=== PATIENT | male | born 1980 ===

== ENCOUNTER 2016-10-18 08:30 | Emergency (ER) | payer BC ==
[2016-10-18 08:30] VITALS: BMI 31.8
--- NOTE | 2016-10-18 09:15 | ED PDOC ---
Arrival/HPI - General Chief Complaint: Headache Time Seen by Provider: 10/18/16 09:08 Historian: Patient - History of Present Illness Narrative History of Present Illness (Text): 10/18/16 08:52 A 35 year old male, whose past medical history includes TIA, DVT and Sciatica, presents to the emergency department with multiple complaints. The patient reports since this morning the has had some intermittent odd, numbness, sensation to the left side of the face. He denies any vision changes. Patient notes yesterday evening he has a pinching sensation to the right lower extremity and due to his history of DVT he became considered. During examination patient noticed a sharp pinpoint pleuritic pain the the back. He denies any fever, nausea, vomiting, prolonged immobilization, or other complaints at this time. PMD: [facility] Time/Duration: Other Symptom Onset: Sudden Symptom Course: Intermittent Quality: Other Activities at Onset: Rest Context: Home Past Medical History - Provider Review Nursing Documentation Reviewed: Yes - Past History Past History: No Previous - Infectious Disease Hx of Infectious Diseases: None - Tetanus Immunization Tetanus Immunization: Up to Date - Cardiac Hx Cardiac Disorders: No Hx Hypertension: No - Pulmonary Hx Asthma: Yes - Neurological Hx Transient Ischemic Attacks (TIA): Yes (Poss TIA two years ago) - HEENT Hx HEENT Disorder: No - Renal Hx Renal Disorder: No - Endocrine/Metabolic Hx Endocrine Disorders: No - Hematological/Oncological Hx Cancer: No Other/Comment: DVT Hx Right leg - Integumentary Hx Dermatological Disorder: No - Musculoskeletal/Rheumatological Hx Musculoskeletal Disorders: No Hx Herniated Disk: Yes Other/Comment: Sciatica - Gastrointestinal Hx Gastrointestinal Disorders: No - Genitourinary/Gynecological Hx Sexually Transmitted Diseases: No - Psychiatric Hx Psychophysiologic Disorder: No Hx Anxiety: No Hx Bipolar Disorder: No Hx Depression: No Hx Emotional Abuse: No Hx Hallucinations: No Hx Panic Disorder: No Hx Post Traumatic Stress Disorder: No Hx Psychosis: No Hx Physical Abuse: No Hx Schizophrenia: No Hx Sexual Abuse: No Hx Substance Use: No - Surgical History Hx Appendectomy: Yes Hx Orthopedic Surgery: Yes (R ANKLE) Hx Tonsillectomy: Yes - Anesthesia Hx Anesthesia: Yes Hx Anesthesia Reactions: No Hx Malignant Hyperthermia: No - Suicidal Assessment Feels Threatened In Home Enviroment: No Family/Social History - Physician Review Nursing Documentation Reviewed: Yes Family/Social History: Unknown Family HX Smoking Status: Never Smoked Hx Alcohol Use: No Hx Substance Use: No Hx Substance Use Treatment: No Allergies/Home Meds Allergies/Adverse Reactions: Allergies No Known Allergies Allergy (Verified 10/18/16 08:42) Review of Systems - Physician Review All systems were reviewed & negative as marked: Yes - Review of Systems Constitutional: absent: Fevers Cardiovascular: absent: Chest Pain Gastrointestinal: absent: Nausea, Vomiting Musculoskeletal: Back Pain, Other (pinch to the right lower extremity) Neurological: Other (numbness to the left side of the face) Physical Exam - Physical Exam Narrative Physical Exam (Text): Constitutional: No acute distress. Head: Normocephalic. Atraumatic. Eyes: PERRL. ENT: Moist mucous membranes. Neck: Supple. Cardiovascular: Regular rate. Chest: No tenderness. Respiratory: Clear to auscultation bilaterally. GI: Soft. Nontender. Nondistended. Back: No CVA tenderness. Musculoskeletal: No tenderness or swelling of extremities. Skin: No rash. Neurological: GCS=15, CN II-XII Intact except mild left sided facial weakness involving the forehead, Speech Normal, 5/5 motor strength, Normal Sensory Function, Normal finger to nose, Normal heel to stacy, Gait Normal, Memory Normal , Vital Signs Reviewed: Yes Vital Signs Temp Pulse Resp BP Pulse Ox 10/18/16 08:42 97.3 F L 78 18 136/87 97 10/18/16 08:30 82 18 136/87 98 Temperature: Afebrile Blood Pressure: Normal Pulse: Regular Respiratory Rate: Normal Appearance: Positive for: Well-Appearing, Non-Toxic, Comfortable Pain Distress: None Mental Status: Positive for: Alert and Oriented X 3 Medical Decision Making ED Course and Treatment: 10/18/16 08:52 Impression: A 35 year old male with numbness to the left side of the face, sharp pleuritic back pain and a pinching sensation to the right lower extremity. Differential Diagnosis include but are not limited to: ly's palsy vs. PE vs. DVT Plan: -- Right lower extremity duplex ultrasound -- Labs -- Valtrex and Prednisone -- Reassess and disposition Prior Visits: Notes and results from previous visits were reviewed. The patient last presented to the emergency department on 05/02/16 for evaluation of feeling anxious and depressed. Progress Notes: - Lab Interpretations Lab Results: 10/18/16 09:08 10/18/16 09:30 Lab Results 10/18/16 09:30: Sodium 138, Potassium 4.4, Chloride 104, Carbon Dioxide 27, Anion Gap 11, BUN 19, Creatinine 1.0, Est GFR ( Amer) > 60, Est GFR (Non- Af Amer) > 60, Random Glucose 90, Calcium 8.9, Total Bilirubin 0.6, AST 27, ALT 37, Alkaline Phosphatase 66, Total Protein 7.3, Albumin 4.2, Globulin 3.1, Albumin/Globulin Ratio 1.4 10/18/16 09:30: D-Dimer, Quantitative 0.26 10/18/16 09:08: WBC 5.7 D, RBC 5.00, Hgb 14.9, Hct 42.0, MCV 84.0, MCH 29.8, MCHC 35.5, RDW 12.5, Plt Count 141, MPV 11.5 H, Gran % 66.8, Lymph % (Auto) 24.3 , [place] % (Auto) 6.3 H, Eos % (Auto) 2.4, Baso % (Auto) 0.2, Gran # 3.83, Lymph # 1.4, [place] # 0.4, Eos # 0.1, Baso # 0.01 I have reviewed the lab results: Yes - RAD Interpretation Radiology Orders: 10/18/16 09:22 DUPLEX LOWER EXTRM VEIN RIGHT [US] Stat - Medication Orders Current Medication Orders: Discontinued Medications Prednisone (Prednisone Tab) 60 mg PO STAT ONE Stop: 10/18/16 09:11 Last Admin: 10/18/16 09:24 Dose: 60 mg Valacyclovir HCl (Valtrex) 1 gm PO STAT STA PRN Reason: Protocol Stop: 10/18/16 09:09 Last Admin: 10/18/16 09:24 Dose: 1 gm - Scribe Statement The provider has reviewed the documentation as recorded by the Crista Lee Provider Crystalibe Attestation: All medical record entries made by the Crystalibyosvany were at my direction and personally dictated by me. I have reviewed the chart and agree that the record accurately reflects my personal performance of the history, physical exam, medical decision making, and the department course for this patient. I have also personally directed, reviewed, and agree with the discharge instructions and disposition. Disposition/Present on Arrival - Present on Arrival Any Indicators Present on Arrival: Yes History of DVT/PE: Yes History of Uncontrolled Diabetes: No Urinary Catheter: No History of Decub. Ulcer: No History Surgical Site Infection Following: None - Disposition Have Diagnosis and Disposition been Completed?: Yes Diagnosis: Ly palsy Disposition: HOME/ ROUTINE Disposition Time: 10:00 Patient Plan: Discharge Condition: STABLE Discharge Instructions (ExitCare): Ly Palsy (ED) Prescriptions: predniSONE [predniSONE Tab] 3 tab PO DAILY #18 tab Valacyclovir HCl [Valtrex] 1 gm PO TID #20 tablet Referrals: Héctor Taylor MD [Staff Provider] - Follow up with primary Forms: WORK NOTE
[2016-10-18 09:31] LABS: BASO # 0.01 K/mm3 (0.0-2.0); BASO % 0.2 % (0.0-3.0); EOS # 0.1 (0.0-0.7); EOS % 2.4 % (1.5-5.0); GRAN # 3.83 (1.4-6.5); GRAN % 66.8 % (50.0-68.0); HEMOGLOBIN 14.9 gm/dL (14.0-18.0); LYMPH # 1.4 (1.2-3.4); LYMPH % 24.3 % (22.0-35.0); MEAN CORPUSCULAR HEMOGLOBIN 29.8 pg (25.0-35.0); MEAN CORPUSCULAR HGB CONC 35.5 g/dl (31.0-37.0); MEAN PLATELET VOLUME 11.5 fl (7.0-11.0); MONO # 0.4 (0.1-0.6); MONO % 6.3 % (1.0-6.0); PLATELET COUNT 141 10^3/uL (120.0-450.0); RED CELL DISTRIBUTION WIDTH 12.5 % (11.5-14.5); WHITE BLOOD COUNT 5.7 10^3/ul (4.5-11.0)
[2016-10-18 09:47] LABS: ALB/GLOB RATIO 1.4 (1.1-1.8); ALBUMIN 4.2 g/dL (3.0-4.8); ALT/SGPT 37 U/L (7-56); AST/SGOT 27 U/L (15-59); BLOOD UREA NITROGEN 19 mg/dL (7-21); CALCIUM 8.9 mg/dL (8.4-10.5); GFR AFRICAN-AMERICAN > 60; GFR NON-AFRICAN AMERICAN > 60
[2016-10-18 10:30] VITALS: BP 110/62; PULSE 66; RESP 16; TEMP 98; O2SAT 98
--- NOTE | 2016-10-18 11:23 | US ---
PROCEDURE: Right lower extremity venous US HISTORY: Leg pain and swelling. Evaluate for DVT. PHYSICIAN(S): Leoncio Garcia M.D. TECHNIQUE: Duplex sonography and color-flow Doppler with graded compression were used to evaluate the deep venous system of the right lower extremity. FINDINGS: The visualized deep venous system of the right lower extremity is sonographically normal and compressible. Normal waveforms and augmentation are seen. There is no sonographic evidence for deep venous thrombosis in the visualized segments of the right lower extremity. IMPRESSION: 1. No sonographic evidence for deep venous thrombosis in the visualized segments of the right lower extremity.
--- NOTE | 2016-10-18 13:34 | CARD ---
APPROVED REPORT EKG Measurement Heart [id number] <Conclusion> Normal sinus rhythm Normal ECG
== END 2016-10-18 10:30 | disposition home or self-care (01) ==
LOC: ED 08:30
DX: G51.0 Bell's palsy (principal); Z86.73 Personal history of transient ischemic attack (TIA), and cerebral infarction without residual deficits; Z86.718 Personal history of other venous thrombosis and embolism

== ENCOUNTER 2016-12-19 08:53 | Emergency (ER) | payer BC ==
[2016-12-19 09:21] VITALS: RESP 18; TEMP 98; BMI 29.5
--- NOTE | 2016-12-19 09:41 | ED PDOC ---
Arrival/HPI - General Chief Complaint: Groin Pain Time Seen by Provider: 12/19/16 09:36 Historian: Patient - History of Present Illness Narrative History of Present Illness (Text): 12/19/16 09:38 35 y/o male, pmh including TIA?/bells palsy, nkda, c/o lt. groin and pelvic pain x 3 weeks. Pt. stated that he has been having lt. sided groin pain after he suddenly trying to catch and caught with holding his breath to carry his father in law (350 lbs.) to prevent the fall, thought it was strain or pulled muscle but the pain has never resolved, stated that occasionally feel there is a lump protruding out but not at this time. Pt. has no penile discharge, admits occasionally radiating to the left testicle region but not at this time, no night sweat, no dizziness, no change in vision, no rash, no other medical or psychological complaints. Past Medical History - Provider Review Nursing Documentation Reviewed: Yes - Past History Past History: No Previous - Infectious Disease Hx of Infectious Diseases: None - Tetanus Immunization Tetanus Immunization: Up to Date - Cardiac Hx Cardiac Disorders: No Hx Hypertension: No - Pulmonary Hx Asthma: Yes - Neurological Hx Neurological Disorder: Yes Hx Transient Ischemic Attacks (TIA): Yes (Poss TIA two years ago) - HEENT Hx HEENT Disorder: No - Renal Hx Renal Disorder: No - Endocrine/Metabolic Hx Endocrine Disorders: No - Hematological/Oncological Hx Cancer: No Other/Comment: DVT Hx Right leg - Integumentary Hx Dermatological Disorder: No - Musculoskeletal/Rheumatological Hx Musculoskeletal Disorders: Yes Hx Herniated Disk: Yes Other/Comment: Sciatica - Gastrointestinal Hx Gastrointestinal Disorders: No - Genitourinary/Gynecological Hx Sexually Transmitted Diseases: No - Psychiatric Hx Psychophysiologic Disorder: No Hx Anxiety: No Hx Bipolar Disorder: No Hx Depression: No Hx Emotional Abuse: No Hx Hallucinations: No Hx Panic Disorder: No Hx Post Traumatic Stress Disorder: No Hx Psychosis: No Hx Physical Abuse: No Hx Schizophrenia: No Hx Sexual Abuse: No Hx Substance Use: No - Surgical History Hx Appendectomy: Yes Hx Orthopedic Surgery: Yes (R ANKLE) Hx Tonsillectomy: Yes Other/Comment: I&D R leg - Anesthesia Hx Anesthesia: Yes Hx Anesthesia Reactions: No Hx Malignant Hyperthermia: No - Suicidal Assessment Feels Threatened In Home Enviroment: No Family/Social History - Physician Review Nursing Documentation Reviewed: Yes Family/Social History: Unknown Family HX Smoking Status: Never Smoked Hx Alcohol Use: No Hx Substance Use: No Hx Substance Use Treatment: No Allergies/Home Meds Allergies/Adverse Reactions: Allergies No Known Allergies Allergy (Verified 12/19/16 09:12) Review of Systems - Review of Systems Constitutional: absent: Fatigue, Fevers Eyes: absent: Vision Changes ENT: absent: Hearing Changes Respiratory: absent: SOB, Cough Cardiovascular: absent: Chest Pain Gastrointestinal: Other (lt. sided groin pain). absent: Diarrhea, Nausea, Vomiting Musculoskeletal: Myalgias. absent: Arthralgias, Back Pain Skin: absent: Rash, Pruritis Neurological: absent: Headache, Gait Changes Endocrine: absent: Diaphoresis Physical Exam Vital Signs Reviewed: Yes Vital Signs Temp Pulse Resp BP Pulse Ox 12/19/16 09:12 98.0 F 83 18 123/71 98 Temperature: Afebrile Blood Pressure: Normal Pulse: Regular Respiratory Rate: Normal Appearance: Positive for: Well-Appearing, Non-Toxic Pain Distress: Moderate Mental Status: Positive for: Alert and Oriented X 3 - Systems Exam Head: Present: Atraumatic, Normocephalic Pupils: Present: PERRL Extroacular Muscles: Present: EOMI Conjunctiva: Present: Normal Mouth: Present: Moist Mucous Membranes Neck: Present: Normal Range of Motion Respiratory/Chest: Present: Clear to Auscultation, Good Air Exchange. No: Respiratory Distress, Accessory Muscle Use Cardiovascular: Present: Regular Rate and Rhythm, Normal S1, S2. No: Murmurs Abdomen: Present: Normal Bowel Sounds, Other (there is no palpable protruding hernia). No: Tenderness, Distention, Peritoneal Signs, Rebound, Guarding, Hernias Genitourinary Male: Present: Normal External Genitalia. No: Lesions, Penile Discharge, Testicle Tenderness, Penile Swelling, Masses, Erythema, Hernias, Testicle Swelling Back: Present: Normal Inspection Upper Extremity: Present: Normal Inspection. No: Cyanosis, Edema Lower Extremity: Present: Normal Inspection. No: Edema Neurological: Present: GCS=15, Speech Normal, Motor Func Grossly Intact, Gait Normal, Memory Normal Skin: Present: Warm, Dry, Normal Color. No: Rashes Psychiatric: Present: Alert, Oriented x 3, Normal Insight, Normal Concentration Medical Decision Making ED Course and Treatment: 12/19/16 09:41 -labs/ua -CT abdomen and pelvis -Testicular sonogram -IVF/toradol -observe and reassess -labs are non-significant -ua show no UTI -CT abdomen and pelvis show no acute findings -Testicular sonogram show Mild left varicocele. Bilateral mild hydrocele. Otherwise unremarkable examination. -Pt. feels better with pain relief. -Discharge home with naproxen, scrotal support, avoid straining/exercise or gym , follow up with your own pmd/urologist and general surgeon within 2 days, return to the ER for any new or worsening signs or symptoms. - Lab Interpretations Lab Results: 12/19/16 09:50 12/19/16 09:50 Lab Results 12/19/16 10:25: Urine Color Yellow, Urine Appearance Clear, Urine pH 5.5, Ur Specific [place] >= 1.030, Urine Protein Negative, Urine Glucose (UA) Negative, Urine Ketones Negative, Urine Blood Negative, Urine Nitrate Negative, Urine Bilirubin Negative, Urine Urobilinogen 0.2, Ur Leukocyte Esterase Negative 12/19/16 09:50: WBC 5.6, RBC 4.78, Hgb 14.5, Hct 40.3 L, MCV 84.3, MCH 30.3, MCHC 36.0, RDW 12.6, Plt Count 150, MPV 11.6 H, Gran % 72.6 H, Lymph % (Auto) 19.3 L, [place] % (Auto) 6.5 H, Eos % (Auto) 1.4 L, Baso % (Auto) 0.2, Gran # 4.03 , Lymph # 1.1 L, [place] # 0.4, Eos # 0.1, Baso # 0.01 12/19/16 09:50: Sodium 143, Potassium 4.5, Chloride 106, Carbon Dioxide 27, Anion Gap 15, BUN 15, Creatinine 1.0, Est GFR ( Amer) > 60, Est GFR (Non- Af Amer) > 60, Random Glucose 90, Calcium 9.1, Total Bilirubin 0.6, AST 26, ALT 31, Alkaline Phosphatase 59, Total Protein 7.1, Albumin 4.3, Globulin 2.8, Albumin/Globulin Ratio 1.5 I have reviewed the lab results: Yes Interpretation: No clinic. lab abnormalty - RAD Interpretation Radiology Orders: 12/19/16 09:37 ABD & PELVIS IV CONTRAST ONLY [CT] Stat TESTES DUPLEX COMPLETE [US] Stat CT Abdomen/pelvis: unremarkable Testicular sonogram: Mild left varicocele. Bilateral mild hydrocele. Otherwise unremarkable examination. 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 Disposition/Present on Arrival - Present on Arrival Any Indicators Present on Arrival: No History of DVT/PE: Yes History of Uncontrolled Diabetes: No Urinary Catheter: No History of Decub. Ulcer: No History Surgical Site Infection Following: None - Disposition Have Diagnosis and Disposition been Completed?: Yes Diagnosis: Varicocele, Hydrocele, Groin pain Disposition: HOME/ ROUTINE Disposition Time: 11:52 Patient Plan: Discharge Patient Problems: Current Active Problems Problem Status Onset Groin pain Acute Hydrocele Acute Varicocele Acute Condition: IMPROVED Additional Instructions: -Discharge home with naproxen, scrotal support, avoid straining/exercise or gym , follow up with your own pmd/urologist and general surgeon within 2 days, return to the ER for any new or worsening signs or symptoms. Prescriptions: Naproxen 500 mg PO BID #22 tab Referrals: Gay Ashby MD [Primary Care Provider] - Follow up with primary Carlos A Waters MD [Staff Provider] - Follow up with primary Chris Guzman MD [Medical Doctor] - Follow up with primary Forms: [employer] (Lithuanian), WORK NOTE
[2016-12-19 10:06] LABS: BASO # 0.01 K/mm3 (0.0-2.0); BASO % 0.2 % (0.0-3.0); EOS # 0.1 (0.0-0.7); EOS % 1.4 % (1.5-5.0); GRAN # 4.03 (1.4-6.5); GRAN % 72.6 % (50.0-68.0); HEMATOCRIT 40.3 % (42.0-52.0); LYMPH # 1.1 (1.2-3.4); LYMPH % 19.3 % (22.0-35.0); MEAN CELL VOLUME 84.3 fl (80.0-105.0); MEAN CORPUSCULAR HEMOGLOBIN 30.3 pg (25.0-35.0); MEAN PLATELET VOLUME 11.6 fl (7.0-11.0); MONO # 0.4 (0.1-0.6); MONO % 6.5 % (1.0-6.0); RED CELL DISTRIBUTION WIDTH 12.6 % (11.5-14.5); WHITE BLOOD COUNT 5.6 10^3/ul (4.5-11.0)
[2016-12-19 10:14] LABS: ALB/GLOB RATIO 1.5 (1.1-1.8); ALKALINE PHOSPHATASE 59 U/L (38-126); ALT/SGPT 31 U/L (7-56); AST/SGOT 26 U/L (17-59); BILIRUBIN,TOTAL 0.6 mg/dL (0.2-1.3); BLOOD UREA NITROGEN 15 mg/dL (7-21); CALCIUM 9.1 mg/dL (8.4-10.5); CARBON DIOXIDE 27 mmol/L (21-33); CHLORIDE 106 mmol/L (98-107); GFR AFRICAN-AMERICAN > 60; GLUCOSE,RANDOM 90 mg/dL (70-110); POTASSIUM 4.5 mmol/L (3.6-5.0); SODIUM 143 mmol/L (132-148); TOTAL PROTEIN 7.1 g/dL (5.8-8.3)
[2016-12-19] MEDS ORDERED: Iohexol 350 MG/100 ML VIAL ONE (10:19)
[2016-12-19 10:47] LABS: PH,URINE 5.5 (4.7-8.0); URINE BILIRUBIN NEGATIVE (NEGATIVE); URINE BLOOD NEGATIVE (NEGATIVE); URINE GLUCOSE (UA) NEGATIVE (NEGATIVE); URINE KETONE NEGATIVE (NEGATIVE); URINE LEUKOCYTE ESTERASE NEGATIVE Leu/uL (NEGATIVE); URINE PROTEIN NEGATIVE mg/dL (<30 mg/dL); URINE UROBILINOGEN 0.2 E.U./dL (<1 E.U./dL)
--- NOTE | 2016-12-19 10:49 | CT ---
PROCEDURE: CT Abdomen and Pelvis with contrast HISTORY: lt. sided groin pain x 3 weeks COMPARISON: None. TECHNIQUE: Contrast dose: 100 cc of Omni 350 Radiation dose: Total exam DLP = 868 mGy-cm. This CT exam was performed using one or more of the following dose reduction techniques: Automated exposure control, adjustment of the mA and/or kV according to patient size, and/or use of iterative reconstruction technique. FINDINGS: LOWER THORAX: Unremarkable. LIVER: Unremarkable. No gross lesion or ductal dilatation. GALLBLADDER AND BILE DUCTS: Unremarkable. PANCREAS: Unremarkable. No gross lesion or ductal dilatation. SPLEEN: Unremarkable. ADRENALS: Unremarkable. No mass. KIDNEYS AND URETERS: Unremarkable. No hydronephrosis. No solid mass. VASCULATURE: Unremarkable. No aortic aneurysm. BOWEL: Unremarkable. No obstruction. No gross mural thickening. APPENDIX: Normal appendix. PERITONEUM: Unremarkable. No free fluid. No free air. LYMPH NODES: Unremarkable. No enlarged lymph nodes. BLADDER: Unremarkable. REPRODUCTIVE: Unremarkable. BONES: No acute fracture. OTHER FINDINGS: None. IMPRESSION: Unremarkable contrast enhanced CT of the abdomen and pelvis.
[2016-12-19 10:51] LABS: URINE APPEARANCE CLEAR (CLEAR); URINE COLOR YELLOW (YELLOW)
--- NOTE | 2016-12-19 11:25 | US ---
HISTORY: lt. sided groin pain x 3 weeks TECHNIQUE: Realtime sonography through the scrotum with color and doppler flow. COMPARISON: None Available. FINDINGS: RIGHT TESTICLE: Measures 4.5 x 2.7 x 2.9 cm. Homogeneous echotexture. No mass identified. Normal flow demonstrated. RIGHT EPIDIDYMIS: Normal size and morphology. LEFT TESTICLE: Measures 4.6 x 2.8 x 3.1 cm. Homogeneous echotexture. No mass. Normal flow demonstrated. LEFT EPIDIDYMIS: Normal size and morphology. HYDROCELE: Bilateral mild hydrocele. VARICOCELE: Mild left varicocele. OTHER FINDINGS: None. IMPRESSION: Mild left varicocele. Bilateral mild hydrocele. Otherwise unremarkable examination.
[2016-12-19 12:10] VITALS: BP 98/55; PULSE 67; O2SAT 100
== END 2016-12-19 12:13 | disposition home or self-care (01) ==
LOC: ED 08:53
DX: R10.30 Lower abdominal pain, unspecified (principal); N43.3 Hydrocele, unspecified; I86.1 Scrotal varices
CPT/HCPCS: 74177; 80053; 81003; 85025; 93975; 96374; 99283; J1885; Q9967

== ENCOUNTER 2017-04-26 10:27 | Observation (INO) | payer BC ==
[2017-04-26 10:56] VITALS: BMI 29.8
[2017-04-26] MEDS ORDERED: Sodium Chloride 0.9% 1,000 ML IV STA (12:11)
[2017-04-26 12:52] LABS: URINE BILIRUBIN NEGATIVE (NEGATIVE); URINE BLOOD NEGATIVE (NEGATIVE); URINE GLUCOSE (UA) NEGATIVE (NEGATIVE); URINE LEUKOCYTE ESTERASE NEGATIVE Leu/uL (NEGATIVE); URINE NITRATE NEGATIVE (NEGATIVE); URINE PROTEIN NEGATIVE mg/dL (<30 mg/dL); URINE UROBILINOGEN 0.2 E.U./dL (<1 E.U./dL)
[2017-04-26 12:53] LABS: URINE APPEARANCE CLEAR (CLEAR); URINE COLOR YELLOW (YELLOW)
[2017-04-26 13:12] LABS: BASO # 0.02 K/mm3 (0.0-2.0); BASO % 0.2 % (0.0-3.0); EOS # 0.1 (0.0-0.7); EOS % 1.4 % (1.5-5.0); GRAN # 6.11 (1.4-6.5); GRAN % 70.6 % (50.0-68.0); LYMPH % 22.6 % (22.0-35.0); MEAN CELL VOLUME 85.4 fl (80.0-105.0); MEAN CORPUSCULAR HEMOGLOBIN 30.4 pg (25.0-35.0); MEAN CORPUSCULAR HGB CONC 35.6 g/dl (31.0-37.0); MEAN PLATELET VOLUME 11.5 fl (7.0-11.0); MONO # 0.5 (0.1-0.6); MONO % 5.2 % (1.0-6.0); RBC 5.27 10^6/uL (3.5-6.1); RED CELL DISTRIBUTION WIDTH 12.5 % (11.5-14.5); WHITE BLOOD COUNT 8.7 10^3/ul (4.5-11.0)
[2017-04-26 13:23] LABS: ALB/GLOB RATIO 1.5 (1.1-1.8); ALBUMIN 4.6 g/dL (3.0-4.8); ALT/SGPT 49 U/L (7-56); AST/SGOT 31 U/L (17-59); BLOOD UREA NITROGEN 16 mg/dL (7-21); CALCIUM 9.8 mg/dL (8.4-10.5); GFR AFRICAN-AMERICAN > 60; GFR NON-AFRICAN AMERICAN > 60; LIPASE 54 U/L (23-300)
--- NOTE | 2017-04-26 14:38 | CT ---
PROCEDURE: CT Abdomen and Pelvis with contrast HISTORY: left sided abdominal pain and back pain COMPARISON: 12/19/2016. TECHNIQUE: CT scan of the abdomen and pelvis was performed after intravenous administration contrast. Oral contrast was not administered. Coronal and sagittal reformatted images were obtained with Contrast dose: Radiation dose: Total exam DLP = 925.38 mGy-cm. This CT exam was performed using one or more of the following dose reduction techniques: Automated exposure control, adjustment of the mA and/or kV according to patient size, and/or use of iterative reconstruction technique. FINDINGS: LOWER THORAX: The lung bases are clear. LIVER: The liver is normal in size and there is homogeneous enhancement. No intrahepatic biliary ductal dilatation. GALLBLADDER AND BILE DUCTS: There are no calcified gallstones. PANCREAS: Normal in size with homogeneous enhancement. No gross lesion or ductal dilatation. SPLEEN: Normal in size with homogeneous enhancement. ADRENALS: Normal in size. No discrete nodule. KIDNEYS AND URETERS: Both kidneys are normal in size and there is homogeneous enhancement. No hydronephrosis. No solid mass. VASCULATURE: No aortic aneurysm. BOWEL: There is mild dilatation of the proximal small bowel loops. The mid and distal small bowel loops are normal in caliber. There is scattered colonic diverticulosis. APPENDIX: Normal appendix. PERITONEUM: No free fluid. No free air. LYMPH NODES: No enlarged lymph nodes. BLADDER: Partially decompressed. REPRODUCTIVE: Unremarkable. BONES: No acute fracture. Within normal limits for the patient's age. OTHER FINDINGS: There are bilateral small fat containing inguinal hernias. . IMPRESSION: 1. Mild dilatation of proximal small bowel loops. Normal caliber mid and distal small bowel loops no definite evidence transition zone identified on this examination however evaluation of the bowel is limited in the absence of oral contrast. Findings could represent nonspecific enteritis versus developing small bowel obstruction. Clinical correlation and follow-up is advised. 2. Mild sigmoid diverticulosis without CT evidence for acute diverticulitis.
--- NOTE | 2017-04-26 15:46 | ED PDOC ---
Arrival/HPI - General Chief Complaint: Back Pain Time Seen by Provider: 04/26/17 12:11 Historian: Patient - History of Present Illness Narrative History of Present Illness (Text): 04/26/17 15:40 A 36 year old male whose past medical history includes left sided hernia repair 4 months ago and sciatica, presents to the emergency department complaining of 2 day duration left sided abdominal pain. The patient describes his symptoms as a gassy sensation and achy pain. He notes that he is also experiencing left sided back pain that radiates down his left leg. The patient reports that he had an episode of diarrhea yesterday and constipation today. He states that he took Motrin for his pain yesterday with no relief of his symptoms. The patient denies fevers, chills, headache, dizziness, chest pain, shortness of breath, dyspnea on exertion, cough, nausea, vomiting, urinary symptoms, or any other complaint. PMD: Dr. Ashby Time/Duration: Other (2 Days) Symptom Onset: Sudden Symptom Course: Unchanged Activities at Onset: Rest, Light Context: Home Past Medical History - Provider Review Nursing Documentation Reviewed: Yes - Past History Past History: No Previous - Infectious Disease Hx of Infectious Diseases: None - Tetanus Immunization Tetanus Immunization: Up to Date - Cardiac Hx Hypertension: No - Pulmonary Hx Asthma: Yes - Neurological Hx Seizures: No Hx Transient Ischemic Attacks (TIA): Yes (Poss TIA two years ago) - HEENT Hx HEENT Disorder: No - Renal Hx Renal Disorder: No - Endocrine/Metabolic Hx Endocrine Disorders: No - Hematological/Oncological Hx Blood Disorders: No Hx Cancer: No 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 dr otto aware dr otto and dr acuña aware pt has not taken asa x 1 month - Integumentary Hx Dermatological Disorder: No - Musculoskeletal/Rheumatological Hx Musculoskeletal Disorders: Yes Hx Back Pain: Yes (stiffens and locks) Hx Falls: No Hx Herniated Disk: Yes (cervical lumbar per pt) Other/Comment: Sciatica - Gastrointestinal Hx Gall Bladder Disease: Yes Hx Gastritis: Yes - Genitourinary/Gynecological Hx Sexually Transmitted Diseases: No - Psychiatric Hx Bipolar Disorder: Yes Hx Substance Use: No - Surgical History Hx Appendectomy: Yes Hx Tonsillectomy: Yes - Anesthesia Hx Anesthesia: Yes Hx Anesthesia Reactions: No Hx Malignant Hyperthermia: No - Suicidal Assessment Feels Threatened In Home Enviroment: No Family/Social History - Physician Review Nursing Documentation Reviewed: Yes Family/Social History: No Known Family HX Smoking Status: Never Smoked Hx Alcohol Use: No Hx Substance Use: No Hx Substance Use Treatment: No Allergies/Home Meds Allergies/Adverse Reactions: Allergies No Known Allergies Allergy (Verified 04/26/17 10:56) Home Medications: Home Meds Medication Instructions Recorded Confirmed No Known Home Med 04/26/17 04/26/17 Review of Systems - Physician Review All systems were reviewed & negative as marked: Yes - Review of Systems Constitutional: absent: Fevers, Night Sweats Respiratory: absent: SOB, Cough Cardiovascular: absent: Chest Pain Gastrointestinal: Abdominal Pain (Left sided abdominal pain), Constipation, Diarrhea Genitourinary Male: absent: Urinary Output Changes Musculoskeletal: Back Pain (left sided back pain radiating down the leg.) Neurological: absent: Headache, Dizziness Physical Exam Vital Signs Reviewed: Yes Vital Signs Temp Pulse Resp BP Pulse Ox 04/26/17 18:08 76 18 124/74 98 04/26/17 14:00 70 18 120/70 97 04/26/17 12:00 77 18 115/73 98 04/26/17 10:51 98.5 F 79 18 107/71 98 Temperature: Afebrile Blood Pressure: Normal Pulse: Regular Respiratory Rate: Normal Appearance: Positive for: Well-Appearing, Non-Toxic, Comfortable Pain Distress: None Mental Status: Positive for: Alert and Oriented X 3 - Systems Exam Head: Present: Atraumatic, Normocephalic Conjunctiva: Present: Normal Mouth: Present: Moist Mucous Membranes Neck: Present: Normal Range of Motion Respiratory/Chest: Present: Clear to Auscultation, Good Air Exchange. No: Respiratory Distress, Accessory Muscle Use, Wheezes, Tachypneic Cardiovascular: Present: Regular Rate and Rhythm, Normal S1, S2. No: Murmurs Abdomen: Present: Tenderness (Left lower and mid abdominal tenderness. ), Normal Bowel Sounds, Guarding. No: Distention, Peritoneal Signs, Rebound, McBurney's Point Tender Back: Present: Normal Inspection. No: CVA Tenderness, Midline Tenderness, Paraspinal Tenderness, Pain with Leg Raise (No eccymosis or bruising. Ambulating normally and moving all extremities.) Upper Extremity: Present: Normal Inspection. No: Cyanosis, Edema Lower Extremity: Present: Normal Inspection. No: Edema Neurological: Present: GCS=15, Speech Normal Skin: Present: Warm, Dry, Normal Color. No: Rashes Psychiatric: Present: Alert, Oriented x 3 Medical Decision Making ED Course and Treatment: 04/26/17 20:32 Patient is nontoxic well appearing with stable vital signs presenting with left- sided abdominal pain and left-sided back pain CBC within normal limits CMP within normal limits Urinalysis within normal limits CAT scan: FINDINGS: LOWER THORAX: The lung bases are clear. LIVER: The liver is normal in size and there is homogeneous enhancement. No intrahepatic biliary ductal dilatation. GALLBLADDER AND BILE DUCTS: There are no calcified gallstones. PANCREAS: Normal in size with homogeneous enhancement. No gross lesion or ductal dilatation. SPLEEN: Normal in size with homogeneous enhancement. ADRENALS: Normal in size. No discrete nodule. KIDNEYS AND URETERS: Both kidneys are normal in size and there is homogeneous enhancement. No hydronephrosis. No solid mass. VASCULATURE: No aortic aneurysm. BOWEL: There is mild dilatation of the proximal small bowel loops. The mid and distal small bowel loops are normal in caliber. There is scattered colonic diverticulosis. APPENDIX: Normal appendix. PERITONEUM: No free fluid. No free air. LYMPH NODES: No enlarged lymph nodes. BLADDER: Partially decompressed. REPRODUCTIVE: Unremarkable. BONES: No acute fracture. Within normal limits for the patient's age. OTHER FINDINGS: There are bilateral small fat containing inguinal hernias. . IMPRESSION: 1. Mild dilatation of proximal small bowel loops. Normal caliber mid and distal small bowel loops no definite evidence transition zone identified on this examination however evaluation of the bowel is limited in the absence of oral contrast. Findings could represent nonspecific enteritis versus developing small bowel obstruction. Clinical correlation and follow-up is advised. 2. Mild sigmoid diverticulosis without CT evidence for acute diverticulitis. Patient reassessment: Patient with tenderness to the left mid and lower abdomen. Due to area of pain and location of CAT scan findings will observe the patient with surgical consult to rule out small bowel obstruction Case was discussed in depth with Dr. Turner accepts observational status admission with surgical consult from Dr. Bartlett. case with discussed in depth with dr. bartlett and assistant vice president. Discussed all results with patient in depth Impression: Abdominal pain, r/p sbo admit observational status to med/surg Reassessment Condition: Improving,but remains with symptoms - Lab Interpretations Lab Results: 04/26/17 12:45 04/26/17 12:45 Lab Results 04/26/17 12:46: Urine Color Yellow, Urine Appearance Clear, Urine pH 6.0, Ur Specific [place] 1.025, Urine Protein Negative, Urine Glucose (UA) Negative, Urine Ketones Negative, Urine Blood Negative, Urine Nitrate Negative, Urine Bilirubin Negative, Urine Urobilinogen 0.2, Ur Leukocyte Esterase Negative 04/26/17 12:45: WBC 8.7 D, RBC 5.27, Hgb 16.0, Hct 45.0, MCV 85.4, MCH 30.4, MCHC 35.6, RDW 12.5, Plt Count 182, MPV 11.5 H, Gran % 70.6 H, Lymph % (Auto) 22.6, [place] % (Auto) 5.2, Eos % (Auto) 1.4 L, Baso % (Auto) 0.2, Gran # 6.11, Lymph # 2.0, [place] # 0.5, Eos # 0.1, Baso # 0.02 04/26/17 12:45: Sodium 139, Potassium 4.3, Chloride 102, Carbon Dioxide 28, Anion Gap 14, BUN 16, Creatinine 1.0, Est GFR ( Amer) > 60, Est GFR (Non- Af Amer) > 60, Random Glucose 86, Calcium 9.8, Total Bilirubin 0.9, AST 31, ALT 49, Alkaline Phosphatase 53, Total Protein 7.7, Albumin 4.6, Globulin 3.1, Albumin/Globulin Ratio 1.5, Lipase 54 - RAD Interpretation Radiology Orders: 04/26/17 12:12 ABD & PELVIS IV CONTRAST ONLY [CT] Stat - Medication Orders Current Medication Orders: Sodium Chloride (Sodium Chloride 0.9%) 1,000 mls @ 100 mls/hr IV .Q10H BLANE Last Admin: 04/26/17 17:57 Dose: 100 mls/hr eMAR Start Stop Document 04/26/17 17:57 RD (Rec: 04/26/17 17:57 [id number] Intravenous Solution Start Date 04/26/17 Start Time 17:57 Ketorolac Tromethamine (Toradol) 30 mg IVP Q6H PRN PRN Reason: Pain, moderate (4-7) Discontinued Medications Sodium Chloride (Sodium Chloride 0.9%) 1,000 mls @ 999 mls/hr IV .Q1H1M STA Stop: 04/26/17 13:11 Last Admin: 04/26/17 12:52 Dose: 999 mls/hr eMAR Start Stop Document 04/26/17 12:52 [facility] (Rec: 04/26/17 12:52 [facility] [id number]) Intravenous Solution Start Date 04/26/17 Start Time 12:52 End Date 04/26/17 End time 14:00 Total Infusion Time 68 Ketorolac Tromethamine (Toradol) 30 mg IVP STAT STA Stop: 04/26/17 12:12 Last Admin: 04/26/17 12:52 Dose: 30 mg MAR Pain Assessment Document 04/26/17 12:52 [facility] (Rec: 04/26/17 12:53 [facility] [id number]) Pain Reassessment Is this a pain reassessment? No Sleep Is patient sleeping during reassessment? No Presence of Pain Presence of Pain Yes Pain Scale Used Pain Scale Used Numeric Location Pain Location Body Site Back Description Intensity of Pain at present 6 IVP Administration Document 04/26/17 12:52 [facility] (Rec: 04/26/17 12:53 [facility] [id number]) Charges for Administration # of IVP Administrations 1 - Scribe Statement The provider has reviewed the documentation as recorded by the Crista Cheng Provider Scribe Attestation: All medical record entries made by the Scribe were at my direction and personally dictated by me. I have reviewed the chart and agree that the record accurately reflects my personal performance of the history, physical exam, medical decision making, and the department course for this patient. I have also personally directed, reviewed, and agree with the discharge instructions and disposition. Disposition/Present on Arrival - Present on Arrival Any Indicators Present on Arrival: Yes History of DVT/PE: Yes History of Uncontrolled Diabetes: No Urinary Catheter: No History of Decub. Ulcer: No History Surgical Site Infection Following: None - Disposition Have Diagnosis and Disposition been Completed?: Yes Diagnosis: Abdominal pain, Back pain, Abnormal CT of the abdomen Disposition: HOSPITALIZED Disposition Time: 15:40 Patient Plan: Observation Condition: FAIR
--- NOTE | 2017-04-26 16:46 | CP.PCM.CON ---
History of Present Illness - History of Present Illness History of Present Illness: Surgery Consult Note. Dr. Pappas 36yo M with PMHx of R leg DVT (resolved), Siatica here for evaluation of back pain and left sided abdominal pain. Patient states that he came for CC of left back pain and also c/o 2 days of left sided abdominal pain, and one episode of loose stool this morning (non-bloody). He states that he has had the urge to have a BM all day today, but has not had one since early this morning; he has however, been passing gas. Denies any N/V. No F/C. Denies any sick contacts. States that his left sided back pain is similar to previous episodes of sciatica , radiates down left leg with paresthesias. CT Abd/Pelvis in ED with reports of possible early SBO vs. enteritis. PMHx: R leg DVT, Sciatica PSHx: Appendectomy, Umbilical hernia with mesh, L inguinal hernia with mesh (2016, Dr. Otto), Tonsillectomy, Right lower leg abscess I&D, Right ankle ortho surgery. Social Hx: Denies Tobacco, Denies ETOH, Denies illicit drugs NKDA Review of Systems - Review of Systems All systems: reviewed and no additional remarkable complaints except - Constitutional Constitutional: absent: Chills, Fever - Cardiovascular Cardiovascular: absent: Chest Pain, Dyspnea - Respiratory Respiratory: absent: Cough, Wheezing - Gastrointestinal Gastrointestinal: Abdominal Pain, Diarrhea. absent: Constipation, Hematemesis, Hematochezia, Nausea, Vomiting - Musculoskeletal Musculoskeletal: Back Pain, Radiating Pain into Limb - Neurological Neurological: absent: Abnormal Movements, Confusion Past Patient History - Infectious Disease Hx of Infectious Diseases: None - Tetanus Immunizations Tetanus Immunization: Up to Date - Past Medical History & Family History Past Medical History?: Yes - Past Social History Smoking Status: Never Smoked - CARDIAC Hx Hypertension: No - PULMONARY Hx Asthma: Yes - NEUROLOGICAL Hx Seizures: No Hx Transient Ischemic Attacks (TIA): Yes (Poss TIA two years ago) - HEENT Hx HEENT Problems: No - RENAL Hx Chronic Kidney Disease: No - ENDOCRINE/METABOLIC Hx Endocrine Disorders: No - HEMATOLOGICAL/ONCOLOGICAL Hx Blood Disorders: No Hx Cancer: No 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 dr otto aware dr otto and dr acuña aware pt has not taken asa x 1 month - INTEGUMENTARY Hx Dermatological Problems: No - MUSCULOSKELETAL/RHEUMATOLOGICAL Hx Musculoskeletal Disorders: Yes Hx Back Pain: Yes (stiffens and locks) Hx Falls: No Hx Herniated Disk: Yes (cervical lumbar per pt) Other/Comment: Sciatica - GASTROINTESTINAL Hx Gall Bladder Disease: Yes Hx Gastritis: Yes - GENITOURINARY/GYNECOLOGICAL Hx Sexually Transmitted Disorders: No - PSYCHIATRIC Hx Bipolar Disorder: Yes Hx Substance Use: No - SURGICAL HISTORY Hx Appendectomy: Yes Hx Tonsillectomy: Yes - ANESTHESIA Hx Anesthesia: Yes Hx Anesthesia Reactions: No Hx Malignant Hyperthermia: No Meds Allergies/Adverse Reactions: Allergies Allergy/AdvReac Type Severity Reaction Status Date / Time No Known Allergies Allergy Verified 04/26/17 10:56 - Medications Medications: Current Medications Sodium Chloride (Sodium Chloride 0.9%) 1,000 mls @ 100 mls/hr IV .Q10H BLANE Physical Exam - Constitutional Appears: Well, Non-toxic, No Acute Distress - Head Exam Head Exam: ATRAUMATIC, NORMAL INSPECTION, NORMOCEPHALIC - Eye Exam Eye Exam: EOMI, Normal appearance - ENT Exam ENT Exam: Mucous Membranes Moist - Respiratory Exam Respiratory Exam: NORMAL BREATHING PATTERN. absent: Accessory Muscle Use, Respiratory Distress - Cardiovascular Exam Cardiovascular Exam: absent: JVD - GI/Abdominal Exam GI & Abdominal Exam: Soft. absent: Firm, Guarding, Rebound, Rigid, Tenderness Additional comments: left inguinal hernia repair scar: well healed, no erythema, no induration. Skin edges well approximated. Soft abdomen, no guarding, no rebound. Right appendectomy scar noted. Umbilical hernia repair scar noted - Extremities Exam Extremities exam: Positive for: normal inspection. Negative for: calf tenderness - Neurological Exam Neurological exam: Alert, Oriented x3 - Skin Skin Exam: Dry, Intact, Normal Color, Warm Results - Vital Signs Recent Vital Signs: Last Vital Signs Temp 98.5 F 04/26/17 10:51 Pulse 70 04/26/17 14:00 Resp 18 04/26/17 14:00 BP 120/70 04/26/17 14:00 Pulse Ox 97 04/26/17 14:00 - Labs Result Diagrams: 04/26/17 12:45 04/26/17 12:45 Labs: Laboratory Results - last 24 hr 04/26/17 04/26/17 04/26/17 12:45 12:45 12:46 WBC 8.7 D RBC 5.27 Hgb 16.0 Hct 45.0 MCV 85.4 MCH 30.4 MCHC 35.6 RDW 12.5 Plt Count 182 MPV 11.5 H Gran % 70.6 H Lymph % (Auto) 22.6 [place] % (Auto) 5.2 Eos % (Auto) 1.4 L Baso % (Auto) 0.2 Gran # 6.11 Lymph # 2.0 [place] # 0.5 Eos # 0.1 Baso # 0.02 Sodium 139 Potassium 4.3 Chloride 102 Carbon Dioxide 28 Anion Gap 14 BUN 16 Creatinine 1.0 Est GFR ( Amer) > 60 Est GFR (Non-Af Amer) > 60 Random Glucose 86 Calcium 9.8 Total Bilirubin 0.9 AST 31 ALT 49 Alkaline Phosphatase 53 Total Protein 7.7 Albumin 4.6 Globulin 3.1 Albumin/Globulin Ratio 1.5 Lipase 54 Urine Color Yellow Urine Appearance Clear Urine pH 6.0 Ur Specific [place] 1.025 Urine Protein Negative Urine Glucose (UA) Negative Urine Ketones Negative Urine Blood Negative Urine Nitrate Negative Urine Bilirubin Negative Urine Urobilinogen 0.2 Ur Leukocyte Esterase Negative Assessment & Plan - Assessment and Plan (Free Text) Assessment: 36yo M with abdominal pain - CT scan noted - likely gastroenteritis. r/o sbo Plan: - CLD. May advance diet as tolerated - No acute plans for any surgical intervention - Serial abdominal exams Further recs as per Dr. Mian Rosales PGY1 surgery pager: [phone]
[2017-04-26] MEDS: Sodium Chloride 0.9% 1,000 ML IV SCH (17:57)
--- NOTE | 2017-04-26 23:34 | US ---
HISTORY: Leg pain and swelling. Evaluate for DVT PHYSICIAN(S): Leoncio Garcia MD. TECHNIQUE: Duplex sonography and color-flow Doppler with graded compression were used to evaluate the deep venous systems of both lower extremities. FINDINGS: The visualized deep venous systems of both lower extremities are sonographically normal and compressible. Normal wave forms and augmentation are seen. There is no sonographic evidence for deep venous thrombosis in the visualized segments of both lower extremities. IMPRESSION: No sonographic evidence for deep venous thrombosis in the visualized segments of both lower extremities.
[2017-04-27] MEDS: Sodium Chloride 0.9% 1,000 ML IV SCH (05:26)
[2017-04-27 07:51] LABS: HEMOGLOBIN 14.9 g/dL (14.0-18.0); MEAN CELL VOLUME 85.6 fl (80.0-105.0); MEAN CORPUSCULAR HEMOGLOBIN 29.9 pg (25.0-35.0); MEAN CORPUSCULAR HGB CONC 34.9 g/dl (31.0-37.0); MEAN PLATELET VOLUME 11.5 fl (7.0-11.0); RBC 4.99 10^6/uL (3.5-6.1); RED CELL DISTRIBUTION WIDTH 12.5 % (11.5-14.5); WHITE BLOOD COUNT 6.9 10^3/ul (4.5-11.0)
--- NOTE | 2017-04-27 08:20 | CP.PCM.PN ---
Subjective - Date & Time of Evaluation Date of Evaluation: 04/27/17 Time of Evaluation: 07:00 - Subjective Subjective: Surgery: Dr. Pappas Pt seen and examined. No acute overnight events. States he feels well this morning and denies any N/V overnight. Still admits to some abdominal discomfort but tolerated CLD yesterday. Denies F/C, diarrhea. Objective - Vital Signs/Intake and Output Vital Signs (last 24 hours): Temp Pulse Resp BP Pulse Ox 98.7 F 76 18 124/74 98 04/26/17 19:59 04/26/17 19:59 04/26/17 19:59 04/26/17 19:59 04/26/17 18:08 Intake and Output: 04/27/17 04/27/17 06:59 18:59 Intake Total 120 Balance 120 - Medications Medications: Current Medications Ketorolac Tromethamine (Toradol) 30 mg IVP Q6H PRN PRN Reason: Pain, moderate (4-7) - Labs Labs: 04/27/17 07:15 - Constitutional Appears: Well, No Acute Distress - Head Exam Head Exam: ATRAUMATIC, NORMOCEPHALIC - Eye Exam Eye Exam: Normal appearance - ENT Exam ENT Exam: Mucous Membranes Moist - Respiratory Exam Respiratory Exam: NORMAL BREATHING PATTERN - Cardiovascular Exam Cardiovascular Exam: RRR - GI/Abdominal Exam GI & Abdominal Exam: Soft. absent: Distended, Tenderness, Rebound - Neurological Exam Neurological Exam: Alert, Awake, Oriented x3 - Skin Skin Exam: Dry, Intact, Warm Assessment and Plan - Assessment and Plan (Free Text) Assessment: 36M with abdominal pain r/o SBO vs gastroenteritis Plan: - Will start reg diet this AM and see how pt tolerates - no surgical intervention at this time - d/w Dr. Mian Loja, PGY-3 Surgery
--- NOTE | 2017-04-27 08:29 | HP ---
HISTORY OF PRESENT ILLNESS: I saw Jose Alfredo in the Emergency Room, [facility]. He comes in not feeling well. He has a history of low back pain and then abdominal pain. He had a two-day duration of left side abdominal pain to his left leg. He had diarrhea and constipation. He took some Motrin for the pain. PAST MEDICAL HISTORY: He had a past medical history of low back pain, herniated disc, left-sided hernia 4 months ago, sciatica, asthma, TIA 2 years ago. He also has a DVT of the right leg. He has a disease, he is not sure what it is DVTs, his back stiffens and locks, cervical lumbar disc, sciatica and also lumbar discs, gastritis. PAST SURGICAL HISTORY: He had appendectomy and tonsillectomy. FAMILY HISTORY: No known family history. SOCIAL HISTORY: Never smoked. No alcohol. No drugs. ALLERGIES: NO KNOWN DRUG ALLERGIES. MEDICATIONS: No medications. REVIEW OF SYSTEMS: No acute vision changes or hearing changes. No sweats or fevers. No shortness of breath or cough. No chest pain or palpitations. Having abdominal pain, left side abdominal pain, constipation, diarrhea. No problems urinating. He is having left-sided back pain, that goes down to his leg. No headache. No dizziness. PHYSICAL EXAMINATION: VITAL SIGNS: He has 98.5 temp, 79 pulse, 18 respiratory rate, 107/71 blood pressure, 98% O2 sat on room air. GENERAL: He is well appearing, nontoxic, uncomfortable at low back pain, left-sided belly pain. He is alert and oriented x3. HEENT: Head is atraumatic, normocephalic. Extraocular muscles are intact. Pupils are equal, reactive to light and accommodation. Throat is moist. NECK: Supple. HEART: Regular rate. Normal S1 and S2. LUNGS: Clear to auscultation bilaterally. No wheezes, no rhonchi, no rales. ABDOMEN: Left lower quadrant. Mid abdominal tenderness. No guarding, no rebound, no CVA tenderness, but is uncomfortable. EXTREMITIES: No edema. No CVA tenderness with leg raise. No edema bilaterally. NEUROLOGIC: GCS is 15. Cranial nerves II to XII are grossly intact. Normal speech. Alert and oriented x3. SKIN: Warm and dry. No apparent rashes or ulcers appreciated. LYMPHATICS: Thyroid is midline. No palpable appreciable lymphadenopathy. LABORATORY DATA: He has an urine that is clean. Sodium 139, potassium 4.3, BUN 16, creatinine 1. GFR is greater than 62, sugar is 86, calcium 9.8, total bili is 0.9, AST is 31, ALT is 49, alk phos 33, total protein 7.7, lipase is 54. He has an 8.7 white count, 16 hemoglobin, 45 hematocrit with 182 platelets. He also had a CAT scan of the abdomen and pelvis. CAT scan of the abdomen and pelvis states mild dilatation of the proximal small bowel loops. No definite evidence of transition zone identified; however, the findings could represent enteritis versus developing small bowel obstruction, mild sigmoid diverticulosis. IMPRESSION: He has had a consult with Surgery and Orthopedics. He is going to have tramadol for pain, IV fluids, n.p.o. We are going to watch him overnight observation status for small bowel obstruction, low back pain. He also has a right deep venous thrombosis history. I will get a venous Doppler's of the right lower extremity. Trent Turner DO MTDD
[2017-04-27 08:32] LABS: ALB/GLOB RATIO 1.6 (1.1-1.8); ALBUMIN 4.2 g/dL (3.0-4.8); ALT/SGPT 46 U/L (7-56); AST/SGOT 25 U/L (17-59); BLOOD UREA NITROGEN 14 mg/dL (7-21); CALCIUM 9.1 mg/dL (8.4-10.5); GFR AFRICAN-AMERICAN > 60; GFR NON-AFRICAN AMERICAN > 60
[2017-04-27 08:53] VITALS: BP 116/76; PULSE 63; RESP 19; TEMP 97.6; O2SAT 97
--- NOTE | 2017-04-27 09:40 | DS ---
HISTORY OF PRESENT ILLNESS: I saw him resting comfortably this morning. IV fluids are running. He is doing better. He moved his bowels. No abdominal pain. He has got an appetite better than when he came in. PHYSICAL EXAMINATION: VITAL SIGNS: He has 98.7 temperature, 76 pulse, 124/74 blood pressure, 18 respiratory rate, 90% O2 sat on room air. HEENT: Head is atraumatic and normocephalic. Throat is moist. NECK: Supple. HEART: Regular rate. LUNGS: Clear to auscultation. ABDOMEN: Completely soft. His bowel sounds all over. He did not have them yesterday. He moves his bowel. He is passing some gas. He has got an appetite. No guarding. No rebound. No CVA tenderness. EXTREMITIES: Have no edema. He is still having back pain. He wants to see the orthopedic doctor before he left. There was a consult for Dr. Shirley and Dr. Pappas. Dr. Pappas the surgeon said if he eats, he can go home. I agree with that. LABORATORY DATA: He has a 6.9 white count, 14.9 hemoglobin, 42.7 hematocrit with 138 platelets. 139 sodium, potassium 4.1, BUN 40, creatinine 0.9, GFR is greater than 60, sugar is 79, calcium is 9.1, total bilirubin is 1, AST is 25, ALT is 46, alkaline phosphatase is 46. Total protein is 6.8, albumin is 4.2. Urine is clean. ASSESSMENT AND PLAN: So he came in with a partial mild possible small bowel obstruction, abdominal pain. He improved very quickly overnight. He will be discharged today. He will be on no medication. He will follow up with his primary care doctor in a week. He will also follow up outpatient with the orthopedic doctor for his back pain which has been a chronic pain for years, but medically he improved with his small bowel obstruction, abdominal pain. Trent Turner DO
--- NOTE | 2017-04-27 12:37 | CON ---
DATE: 04/26/2017 REASON FOR CONSULTATION: Low back pain. HISTORY OF PRESENT ILLNESS: This is a 36-year-old gentleman who was admitted with complaints of abdominal pain who also had complaints of lower back pain. The patient says he has a history and is being treated for sciatica with anti-inflammatories and physical therapy. The patient has radiating pain down the left lower extremity that starts in the lower back and buttock region that radiates down the back of the left leg. He says he gets intermittent tingling and numbness in the left lower extremity as well. He says his symptoms are exacerbated by sitting and standing for a period of time. He denies any change in bowel or bladder habits. PAST MEDICAL HISTORY: Also significant for DVT on the right lower extremity. PHYSICAL EXAMINATION GENERAL: This is a gentleman is in no apparent distress. He is awake, alert, and oriented x3. NEUROLOGIC: He is grossly neurologically intact in the bilateral lower extremities with 5/5 strength in all muscle groups. He is intact with soft tissue. His reflexes are physiologic and symmetric. He has a straight leg raise on the left side for some gluteal pain. He has a negative straight leg raise on the right. He has no pain with passive range of motion of his hips. His thighs and calves are soft and nontender bilaterally. He has a palpable pedal pulse bilaterally. On range of motion, he has some moderate loss of range of motion secondary to the pain. He has some mild lower lumbar of the left paraspinal tenderness to palpation. LABORATORY DATA: He does not have any x-rays available. He did have a CT of the abdomen and pelvis. The portions of the lumbar that are visualized on the CAT scan shows some L5-S1 degenerative changes. IMPRESSION: Lumbar pain with lumbar radiculopathy. PLAN: At this point, the patient is scheduled to be discharged today. I recommend that he followup in the office for further evaluation. For now, he says he is to continue going to his physical therapy when he get discharged. He will follow up in the next 7 to 10 days. Edgar Shirley MD
== END 2017-04-27 10:29 | disposition home or self-care (01) ==
LOC: ED 10:27 → ERH 15:49 → 5RSO 18:45
PROVIDERS: ADMIT Family Medicine; ATTEND Family Medicine
DX: K56.600 Partial intestinal obstruction, unspecified as to cause (principal); M54.16 Radiculopathy, lumbar region; Z86.73 Personal history of transient ischemic attack (TIA), and cerebral infarction without residual deficits; K57.30 Diverticulosis of large intestine without perforation or abscess without bleeding; Z86.718 Personal history of other venous thrombosis and embolism
CPT/HCPCS: 36415; 74177; 80053; 81003; 83690; 85025; 85027; 93970; 96361; 96374; 99283; G0378; J1885; J7040; Q9967